=== PATIENT | male | born 1970 | race Caucasian/White ===

== ENCOUNTER 2018-08-10 07:14 | Emergency (ER) | payer MEDICAID, OTHER ==
[~2018-08-10] VITALS: Ht 175.3 cm; Wt 90.9 kg
[~2018-08-10 07:14] MED LIST: ALBU18HF2 INH; ATR0.5NEB IH
[2018-08-10] MEDS ORDERED: albuterol 2.5 MG/3 ML nebule CONTNEB PRN ×2 (07:35→09:55)
[2018-08-10] MEDS ORDERED: ibuprofen tablet 400 MG TABLET PO ONE (07:35)
[2018-08-10] MEDS ORDERED: methylPREDNISolone sod succ 125mg/2ml vial IV ONE (07:35)
[2018-08-10] MEDS ORDERED: magnesium 2GM in 50ml NS 50 ML IV ONE (07:35)
[2018-08-10] MEDS ORDERED: normal saline 1000ml 1,000 ML IV ONE (07:50)
[2018-08-10 09:39] LABS: BASOPHILS % (AUTO) 0.4 % (0-1); EOSINOPHILS # (AUTO) 0.2 X10'3 (0-0.9); EOSINOPHILS % (AUTO) 2.2 % (0-6); HEMATOCRIT 51.4 % (42.0-52.0); HEMOGLOBIN 17.2 g/dl (14.0-17.9); LYMPHOCYTES # (AUTO) 1.3 X10'3 (1.1-4.8); LYMPHOCYTES % (AUTO) 13.6 % (21-51); MEAN CORPUSCULAR HEMOGLOBIN 30.8 PG (27.0-31.0); MEAN CORPUSCULAR HGB CONC 33.4 g/dL (33.0-36.5); MEAN CORPUSCULAR VOLUME 92.1 FL (78-98); MEAN PLATELET VOLUME 8.2 FL (7.4-10.4); MONOCYTES # (AUTO) 0.2 X10'3 (0-0.9); NEUTROPHILS # (AUTO) 7.6 X10'3 (1.8-7.7); NEUTROPHILS % (AUTO) 81.8 % (42-75); PLATELET COUNT 233 X10'3 (140-440); RED BLOOD COUNT 5.59 X10'6 (4.70-6.10); RED CELL DISTRIBUTION WIDTH 13.9 % (11.5-14.5); WHITE BLOOD COUNT 9.3 X10'3 (4.5-11.0)
[2018-08-10 09:50] LABS: INR 0.9 INR; PARTIAL THROMBOPLASTIN TIME 30 SECONDS (22-32); PROTHROMBIN TIME 9.6 SECONDS (9.0-12.0)
[2018-08-10 09:52] LABS: ALANINE AMINOTRANSFERASE 38 U/L (12-78); ALBUMIN/GLOBULIN RATIO 0.9 (1.1-1.5); ALKALINE PHOSPHATASE 80 IU/L (46-116); ANION GAP 9 (8-16); ASPARTATE AMINO TRANSFERASE 22 U/L (10-37); BILIRUBIN,TOTAL 0.2 MG/DL (0.1-1.0); BLOOD UREA NITROGEN 16 MG/DL (7-18); BUN/CREATININE RATIO 16.5 (5.4-32.0); CALCIUM 9.4 MG/DL (8.5-10.1); CHLORIDE 103 MMOL/L (99-107); CREATININE 0.97 MG/DL (0.60-1.10); GLUCOSE 138 MG/DL (70-104); SODIUM 138 MMOL/L (135-145); TOTAL CARBON DIOXIDE 25.8 MMOL/L (24-32); TOTAL PROTEIN 8.4 G/DL (6.4-8.2); eGFR 83 ML/MIN
--- NOTE | 2018-08-10 12:17 | NUR ---
ASSUMED CARE OF PT FROM HIMANSHU KURTZ
[2018-08-10] MEDS ORDERED: ALBU8.5H8 INH (12:32)
[2018-08-10] MEDS ORDERED: ALB0.5UD IH (12:32)
[2018-08-10] MEDS ORDERED: IPRA3AMP31 IH (12:32)
[2018-08-10] MEDS ORDERED: PRED20TA PO (12:32)
[2018-08-10 12:49] VITALS: BP 122/65
== END 2018-08-10 12:50 | disposition home or self-care (01) ==
LOC: ER 07:14
DX: J45.901 Unspecified asthma with (acute) exacerbation (principal); G89.29 Other chronic pain; F17.200 Nicotine dependence, unspecified, uncomplicated; Z79.899 Other long term (current) drug therapy
CPT/HCPCS: 36415; 71045; 80053; 83880; 85025; 85610; 85730; 93005; 94644; 94645; 94760; 96365; 96366; 96375; 99285; J2930; J3475; J7030

== ENCOUNTER 2023-01-27 10:47 | Emergency (ER) | payer SELFPAY ==
[~2023-01-27] VITALS: Ht 175.3 cm; Wt 101.4 kg
[~2023-01-27 10:47] MED LIST changes: +ALBU8.5H17 INH; +IPRA3AMP31 IH
[2023-01-27 11:28] VITALS: BP 163/95
== END 2023-01-27 15:29 | disposition left against medical advice (07) ==
LOC: ER 10:47
DX: R60.0 Localized edema (principal); Z53.21 Procedure and treatment not carried out due to patient leaving prior to being seen by health care provider
CPT/HCPCS: 99281